=== PATIENT | female | born 1960 | race Caucasian/White ===

== ENCOUNTER 2025-10-15 05:27 | Day surgery (SDC) | payer BC ==
[2025-10-15] MEDS ORDERED: CEFAZOLIN 2 GM VIAL ONE (06:22)
[2025-10-15] MEDS ORDERED: Lidocaine 1% w/Epinephrine 1:200K 30 ML VIAL ONE (06:22)
[2025-10-15] MEDS ORDERED: Sevoflurane 250 ML INH ANEST BOTTLE ONE (06:23)
[2025-10-15] MEDS ORDERED: Lidocaine 1% PF 5 ML VIAL ONE (06:25)
[2025-10-15] MEDS ORDERED: Rocuronium Bromide 10 MG/ML (10ML VIAL) ONE (06:25)
[2025-10-15] MEDS ORDERED: SUGAMMADEX SODIUM 200 MG/2 ML VIAL ONE (06:25)
[2025-10-15] MEDS ORDERED: Ondansetron PF 4 MG/2 ML Vial ONE (06:25)
[2025-10-15] MEDS ORDERED: PROPOFOL 20 ML ONE (06:25)
[2025-10-15 06:47] LABS: Hematocrit 39.4 % (34.9-44.5)
== END 2025-10-15 10:00 | disposition home or self-care (01) ==
LOC: CSHSDC 05:27
PROVIDERS: ATTEND Otolaryngology Otolaryngic Allergy
PROC: 0GBR0ZZ Excision of Parathyroid Gland, Open Approach (ICD-10-PCS; principal; 2025-10-15)
DX: D35.1 Benign neoplasm of parathyroid gland (principal); E21.3 Hyperparathyroidism, unspecified; H90.2 Conductive hearing loss, unspecified; H80.93 Unspecified otosclerosis, bilateral; H90.A22 Sensorineural hearing loss, unilateral, left ear, with restricted hearing on the contralateral side; Z90.710 Acquired absence of both cervix and uterus
CPT/HCPCS: 36415; 83970; 85014; J1100; J2250; J2405; J2704; J3010